=== PATIENT | female | born 1995 | race Caucasian/White ===

== ENCOUNTER 2018-09-27 08:42 | Emergency (ER) | payer OTHER ==
[~2018-09-27] VITALS: Ht 170.2 cm; Wt 76.4 kg
[2018-09-27] MEDS ORDERED: ONDA4TAB5 (08:57)
[2018-09-27] MEDS ORDERED: DESV50TA3 (08:57)
[2018-09-27] MEDS ORDERED: DICY20TA (08:57)
[2018-09-27] MEDS ORDERED: ONDANSETRON 4 MG ORAL DISINTEGRATING TAB (Q0162 PER 1MG) PO ONE (09:30)
[2018-09-27] MEDS ORDERED: ACETAMINOPHEN 325 MG TAB PO ONE (09:30)
[2018-09-27] MEDS ORDERED: ONDA4TAB6 PO (09:55)
[2018-09-27] MEDS ORDERED: ROBA500T PO (09:56)
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
[2018-09-27 10:14] VITALS: BP 132/77
== END 2018-09-27 10:14 | disposition home or self-care (01) ==
LOC: M ED 08:42
DX: S09.90XA Unspecified injury of head, initial encounter (principal); M54.2 Cervicalgia; R11.0 Nausea; V47.5XXA Car driver injured in collision with fixed or stationary object in traffic accident, initial encounter; Y92.410 Unspecified street and highway as the place of occurrence of the external cause; F32.9 Major depressive disorder, single episode, unspecified; Z79.899 Other long term (current) drug therapy
CPT/HCPCS: 70450; 72125; 99283; Q0162